=== PATIENT | female | born 1975 | race Caucasian/White ===

== ENCOUNTER 2022-07-10 04:58 | Emergency (ER) | payer MEDICAID ==
[~2022-07-10] VITALS: Ht 175.3 cm; Wt 72.7 kg
[2022-07-10 06:10] VITALS: BP 136/104
== END 2022-07-10 05:45 | disposition home or self-care (01) ==
LOC: ER 05:00
DX: T18.5XXA Foreign body in anus and rectum, initial encounter (principal); X58.XXXA Exposure to other specified factors, initial encounter; Y93.89 Activity, other specified; Y92.89 Other specified places as the place of occurrence of the external cause; Y99.8 Other external cause status
CPT/HCPCS: 99283